=== PATIENT | male | born 1980 | race Caucasian/White ===

== ENCOUNTER 2025-10-17 20:38 | Emergency (ER) | payer OTHER, SELFPAY ==
--- OUTSIDE RECORDS SUMMARY | 2025-10-17 20:41 | XMS_ITS | Clinical Summary ---
Author Organization [facility] 2 Address [address] [facility] [place] [address] Care Team Providers Care Body Builder Apprentice Name Role Phone Dell Watts MD Unavailable Ra Hou NP Unavailable David Kaur MD Primary Care Provider + Allergies Active Allergy Reactions Criticality Noted Date Comments Sulfamethoxazole-Trimethopri m Rash Medium 01/12/2020 Unclassified Drug Rash Medium 02/03/2019 Antibiotic - can't remember the name, gets a little rash after about 3 weeks Medications amoxicillin-cla vulanate (AUGMENTIN) 875-125 mg per tablet Take 1 tablet (875 mg of amoxicillin total) by mouth 2 (two) times a day 11/21/19 24 Active prochlorperazin e (Compazine) 10 mg tabletIndicatio ns:Malignant melanoma of left upper extremity (HCC),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 Referring provider: Dr. Dell aWtts Mr. Nitin Bhardwaj is a 40-year-old with an enlarged right paratracheal lymph node. 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 He underwent excision and sentinel lymph node biopsy followed by 2 cycles of Yervoy completed in December 2016. On 07/19/2020 the patient underwent a CT of the chest/abdomen/pelvis which showed an interval increase in size of a round 13 mm right paratracheal lymph node. This could be reactive or metastatic. Additional findings included a stable 8 mm indeterminate left lower lobe pulmonary nodule. There is no evidence of metastatic disease in the abdomen or pelvis. On 07/30/2020 the patient underwent a endobronchial biopsy of the right paratracheal lymph node. Final pathology revealed metastatic malignant melanoma. He was subsequently initiated on Nivolumab on August 30, 2020. Patient is a current smoker. He is scheduled for an updated CT scan prior to his appointment today. Patient presents today for further surgical evaluation. Review of systems: Musculoskeletal: Positive for back pain and joint aches. Respiratory: Positive for asthma. All other systems reviewed and are negative. 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 Medicine Dermatology [address] [facility] [address] [place] [address] Delfino Brothers MD PhD Multiple benign nevi (Primary Dx); Lentigo; History of malignant melanoma 10/05/2025 12:00 PM THIRD COOK Office Visit [facility] Medicine Oncology [address] [facility] Floor 6 [place] [address] Dell Watts MD Metastatic melanoma (HCC) 10/05/2025 11:00 AM THIRD COOK Clinical Support [facility] - Lab Collection [address] [facility] 6 [place] [address] Metastatic melanoma (HCC) 10/05/2025 10:30 [address] [facility] Medicine Oncology Lab [address] [facility] 6 [place] [address] Metastatic melanoma (HCC) 10/05/2025 8:56 AM THIRD COOK - 10/05/2025 11:59 PM THIRD COOK Hospital Encounter [facility] [address] [place] [phone] Metastatic melanoma (HCC) Discharge Disposition: Discharge to home or self care from Last 3 Months Surgical History Surgery Date Site/Laterality Comments SKIN BIOPSY SHOULDER SURGERY Medical History Medical History Date Comments Arthritis Asthma Melanoma (HCC) melanoma Motion sickness Family History Medical History Relation Name Comments No Known Problems Father Cancer Maternal Grandfather Cancer Maternal Grandmother No Known Problems Mother Relation Name Status Comments Father Maternal Grandfather Maternal Grandmother Mother Social History Tobacco Use Types Packs/Day Years Used Date Smoking Tobacco: Former Cigarettes 0 06/05/2025 - 1996 Smokeless Tobacco: Former Tobacco Cessation:Counseling Given: Not Answered Alcohol Use Standard Drinks/Week Comments Yes 0 (1 standard drink = 0.6 oz pur e alcohol) OCCASIONAL Sex and Gender Information Value Date Recorded Sex Assigned at Not on file Legal Sex Male 11:19 AM THIRD COOK Gender Identity Not on file Sexual Orientation Not on file Last Filed Vital Signs Vital Sign Reading Time Taken Comments Blood Pressure 110/72 10/05/2025 11:40 AM THIRD COOK Pulse 92 10/05/2025 11:40 AM THIRD COOK Temperature 36.5 C (97.7 F) 10/05/2025 11:37 AM THIRD COOK Respiratory Rate 18 10/05/2025 11:37 AM THIRD COOK Oxygen Saturation 98% 10/05/2025 11:40 AM THIRD COOK Inhaled Oxygen Concentration - - Weight 87.1 kg (192 lb) 10/05/2025 11:37 AM THIRD COOK Height 177.5 cm (5' 9.88) 10/05/2025 11:[address] Body Mass Index 27.64 10/05/2025 11:37 AM THIRD COOK Plan of Treatment Health Maintenance Due Date Last Done Comments Colon Cancer Screening-Colonoscopy 1978 Depression Screening 1978 Hepatitis C Screening 1978 DTaP/Tdap/Td Vaccine (1 - Tdap) 1989 Hepatitis B Screening 01/18/1996 Regular Well Visit/Exam 18-64 01/18/1996 Pneumococcal vaccine <65 (1 of 2 - PCV) 1997 Zoster Vaccine (1 of 2) 1997 Influenza Vaccine (#1) 2025 Procedures Procedure Name Priority Date/Time Associated Diagnosis Comments EGFR Routine 10/05/2025 10:54 AM THIRD COOK Metastatic melanoma (HCC) DIFFERENTIAL AUTO Routine 10/05/2025 10: 54 AM THIRD COOK Metastatic melanoma (HCC) CBC WITH AUTO DIFFERENTIAL Routine 10/05/2025 10:54 AM THIRD COOK Metastatic melanoma (HCC) COMPREHENSIVE METABOLIC PANEL Routine 10/05/2025 10:54 AM THIRD COOK Metastatic melanoma (HCC) LACTATE DEHYDROGENASE Routine 10/05/2025 10:54 AM THIRD COOK Metastatic melanoma (HCC) THYROID FUNCTION CASCADE Routine 10/05/2025 10:54 AM THIRD COOK Metastatic melanoma (HCC) CT CHEST ABDOMEN PELVIS W CONTRAST Schedule Routine, Read Routine (OP Routine) 10/05/2025 10:10 AM THIRD COOK Metastatic melanoma (HCC) from Last 3 Months Results * eGFR (10/05/2025 10:54 AM THIRD COOK) eGFR 89 >=60 mL/min/1. 73 m2 Comment: Interpretive Data Reference Interval Normal >/= 90 mL/min/1.73m2 Mildly decreased* 60 - 89 mL/min/1.73m2 Mildly to moderately decreased 45 - 59 mL/min/1.73m2 Moderately to severely decreased 30 - 44 mL/min/1.73m2 Severely decreased 15 - 29 mL/min/1.73m2 Kidney Failure < 15 mL/min/1.73m2 *Relative to young adult level Estimated glomerular filtration rate is determined by the 2020 CKD-EPI equation recommended by the National Kidney Foundation (A Unifying Approach to GFR Estimation: Recommendations of the NKF-ASK Task Force on Reassessing the Inclusion of Race in Diagnosing Kidney Disease, JASN 202). The CKD-EPI equation should not be used for patients with unstable renal function and has not been validated in children and those over 70. Current interpretive data was last reviewed 2021. Blood 10/05/2025 10:5 4 AM THIRD COOK 10/05/2025 11:03 AM THIRD COOK us Ra Hou NP LAB BLOOD ORDERABLES Caroline lloyd Result MARK MURILLO [facility] [place] [address] * Differential, auto (10/05/2025 10:54 AM THIRD COOK) Neutrophil abs 4.59 1.50 - 6.50 K/cumm Comment:Testing performed by : [facility], [address] [place] [phone] Lymphocyte abs 1.76 0.80 - 3.30 K/cumm MARK MURILLO Comment:Testing performed by : [facility], [address] [place] [phone] Monocyte abs 0.28 0.20 - 0.80 K/cumm MARK MURILLO Comment:Testing performed by : [facility], [address] [place] [phone] Eosinophil abs 0.14 0.00 - 0.50 K/cumm MARK MURILLO Comment:Testing performed by : [facility], [address] [place] [phone] Basophil abs 0.05 0.00 - 0.10 K/cumm MARK BJ Comment:Testing performed by : [facility], [address] [place] [phone] Neutrophil pct 67.3 % MARK MURILLO Comment: Interpretive Data Percent cell count reference ranges are not reported, since discordance with absolute values may lead to misinterpretation of CBC data. Current Interpretive Data was last revised on 2018. Testing performed by: [facility], [address] [place] [phone] Lymphocyte pct 25.8 % [facility] Comment: Interpretive Data Percent cell count reference ranges are not reported, since discordance with absolute values may lead to misinterpretation of CBC data. Current Interpretive Data was last revised on 2018. Testing performed by: [facility], [address] [place] [phone] Monocyte pct 4.1 % [facility] Comment: Interpretive Data Percent cell count reference ranges are not reported, since discordance with absolute values may lead to misinterpretation of CBC data. Current Interpretive Data was last revised on 2018. Testing performed by: [facility], [address] [place] [phone] Eosinophil pct 2.1 % [facility] Comment: Interpretive Data Percent cell count reference ranges are not reported, since discordance with absolute values may lead to misinterpretation of CBC data. Current Interpretive Data was last revised on 2018. Testing performed by: [facility], [address] [place] [phone] Basophil pct 0.7 % [facility] Comment: Interpretive Data Percent cell count reference ranges are not reported, since discordance with absolute values may lead to misinterpretation of CBC data. Current Interpretive Data was last revised on 2018. Testing performed by: [facility], [address] [place] [phone] Blood 10/05/2025 10:5 4 AM THIRD COOK 10/05/2025 11:02 AM THIRD COOK Ra Hou NP LAB BLOOD ORDERABLES Caroline lloyd Result MARK MURILLO [facility] [place] [address] * Thyroid Function [place] (10/05/2025 10:54 AM THIRD COOK) TSH 1.54 0.30 - 4.20 mcIUnit/mL Blood 10/05/2025 10:5 4 AM THIRD COOK 10/05/2025 11:03 AM THIRD COOK Ra Hou PARTRIDGE FARMER LAB BLOOD ORDERABLES Caroline lloyd Result [facility] [place] [address] * CBC with auto differential (10/05/2025 10:54 AM THIRD COOK) Pathologist [facility] WBC 6.82 3.80 - 9.90 K/cumm Comment:Testing performed by : [facility], [address] [place] [address] Hgb 15.3 13.0 - 17.5 g/dL [facility]I MURILLO Comment:Testing performed by : [facility], [address] [place] [address] Hct 44.9 38.9 - 50.3 % [facility] BJ Comment:Testing performed by : [facility], [address] [place] [address] Plt 196 150 - 400 K/cumm [facility] BJ Comment:Testing performed by : [facility], [address] [place] [address] MPV 7.5 6.8 - 10.4 fL [facility]I BJ Comment:Testing performed by : [facility], [address] [place] [address] RBC 5.09 4.30 - 5.80 M/cumm [facility] BJ Comment:Testing performed by : [facility], [address] [place] [address] MCV 88.2 81.3 - 96.4 fL [facility] BJ Comment:Testing performed by : [facility], [address] [place] [address] MCH 30.1 27.1 - 33.3 pg [facility] BJ Comment:Testing performed by : [facility], [address] [place] [phone] MCHC 34.2 32.3 - 35.7 g/dL MARK [facility] Comment:Testing performed by : [facility], [address] [place], [place] [phone] RDW CV 13.3 11.1 - 14.9 % MARK [facility] Comment:Testing performed by : [facility], [address] [place] [phone] NRBC abs 0.00 0.00 - 0.01 K/cumm MARK [facility] Comment:Testing performed by : [facility], [address] [place] [phone] Blood 10/05/2025 10:5 4 AM THIRD COOK 10/05/2025 11:02 AM THIRD COOK Ra Hou [employer]TRIDGE FARMER LAB BLOOD ORDERABLES Caroline l Result Performing Organization Address City/[facility]/ZIP Co de Phone Number [facility] Department [place] [address] * Lactate dehydrogenase (LD) (10/05/2025 10:54 AM THIRD COOK) [facility] Lactate dehydrogenase (LDH) 211 100 - 250 Units/L Blood 10/05/2025 10:5 4 AM THIRD COOK 10/05/2025 11:03 AM THIRD COOK Ra Hou PARTRID[employer] F[employer]ER LAB BLOOD ORDERABLES Caroline l Result Performing Organization Address City/[facility]/ZIP Co de Phone Number [facility] [place] [address] * Comprehensive metabolic panel (10/05/2025 10:54 AM THIRD COOK) Pathologist [facility] Sodium 141 135 - 145 mmol/L Potassium, pl 4.2 3.3 - 4.9 mmol/L [facility] Chloride 103 97 - 110 mmol/L [facility] CO2 28 22 - 32 mmol/L [facility] Anion gap 10 2 - 15 mmol/L [facility] BUN 12 6 - 25 mg/dL [facility] Creatinine 1.04 0.80 - 1.30 mg/dL [facility] Glucose 133 70 - 199 mg/dL [facility] Comment: Interpretive Data Fasting glucose >/= 126 mg/dl is diagnostic for diabetes. Fasting is defined as no caloric intake for at least 8 hours. Fasting glucose between 100 mg/dl to 125 mg/dl is diagnostic of prediabetes. In a patient with classic symptoms of hyperglycemia or hyperglycemic crisis, a random glucose >/= 200 mg/dl is diagnostic for diabetes. In the absence of unequivocal hyperglycemia, results should be confirmed by repeat testing. The classification and Diagnosis of Diabetes Diabetes Care 202; 46: S19-S40. Current interpretive data was last revised 2022. Calcium 9.3 8.5 - 10.3 mg/dL [facility] Bilirubin, total 0.4 0.1 - 1.2 mg/dL [facility] Protein, pl 7.1 6.5 - 8.5 g/dL [facility] Albumin 4.4 3.5 - 5.0 g/dL [facility] Alk phos 74 40 - 130 Units/L [facility] ALT 38 7 - 55 Units/L [facility] AST 23 10 - 50 Units/L [facility] Blood 10/05/2025 10:5 4 AM THIRD COOK 10/05/2025 11:03 AM THIRD COOK Ra Hou NP LAB BLOOD ORDERABLES Caroline l Result [facility] [place] [address] * CT Chest Abdomen Pelvis W Contrast (10/05/2025 10:10 AM THIRD COOK) Anatomical Region Laterality Modality Body N/A Computed Tomogra phy 10/05/2025 10:2 2 AM THIRD COOK Impressions 10/05/2025 10:22 AM THIRD COOK No evidence of metastatic disease within the chest, abdomen, or pelvis. Electronically signed by: Aime Pastor MD PHD Narrative 10/05/2025 10:22 AM THIRD COOK EXAMINATION: CT CHEST ABDOMEN PELVIS W CONTRAST HISTORY: 45-year-old with metastatic left upper extremity melanoma. TECHNIQUE: Transaxial computed tomographic images of the chest, abdomen and pelvis were obtained with intravenous contrast according to the standard protocol after the administration of 69 mL Opti-Ray 350 intravenous contrast. COMPARISON: CT dated 04/06/2025. FINDINGS: CHEST: No supraclavicular, axillary, or mediastinal lymphadenopathy. The heart size is normal, without pericardial effusion. Coronary artery calcifications. The great vessels are normal in course and caliber. Central airways are clear. No pleural effusion, pulmonary edema, pulmonary consolidation, or pneumothorax. There is old granulomatous disease. A 0.7 cm pulmonary nodule along the right minor fissure likely represents a perifissural lymph node, unchanged. The esophagus is nondistended. ABDOMEN: Unchanged hypoenhancing subcentimeter focus within hepatic segment 2 (TP 211.0), likely representing a flash filling hemangioma. No new focal hepatic lesion is identified. The gallbladder and pancreas is normal. No intra or extrahepatic biliary ductal dilatation. The spleen is unremarkable, with old granulomatous disease. The adrenal glands are normal. The kidneys enhance symmetrically, without hydronephrosis or nephrolithiasis. The urinary bladder is normal. The prostate is present, with dystrophic calcifications. The stomach is nondistended. The duodenal sweep is normal. No evidence of bowel obstruction. The appendix is normal. Scattered colonic diverticula, without evidence of acute diverticulitis. No mesenteric, retroperitoneal, or pelvic lymphadenopathy. Abdominal aorta is normal in course and caliber. The celiac trunk, superior mesenteric artery, and inferior mesenteric artery are patent. The main portal vein, splenic vein, and superior mesenteric vein are patent. Tiny fat-containing periumbilical hernia. No pneumoperitoneum or ascites. No suspicious osseous lesion. Unchanged right femoral synovial herniation pit. Procedure Note Aime Pastor MD PhD - 10/05/2025 EXAMINATION: CT CHEST ABDOMEN PELVIS W CONTRAST HISTORY: 45-year-old with metastatic left upper extremity melanoma. TECHNIQUE: Transaxial computed tomographic images of the chest, abdomen and pelvis were obtained with intravenous contrast according to the standard protocol after the administration of 69 mL Opti-Ray 350 intravenous contrast. COMPARISON: CT dated 04/06/2025. FINDINGS: CHEST: No supraclavicular, axillary, or mediastinal lymphadenopathy. The heart size is normal, without pericardial effusion. Coronary artery calcifications. The great vessels are normal in course and caliber. Central airways are clear. No pleural effusion, pulmonary edema, pulmonary consolidation, or pneumothorax. There is old granulomatous disease. A 0.7 cm pulmonary nodule along the right minor fissure likely represents a perifissural lymph node, unchanged. The esophagus is nondistended. ABDOMEN: Unchanged hypoenhancing subcentimeter focus within hepatic segment 2 (TP 211.0), likely representing a flash filling hemangioma. No new focal hepatic lesion is identified. The gallbladder and pancreas is normal. No intra or extrahepatic biliary ductal dilatation. The spleen is unremarkable, with old granulomatous disease. The adrenal glands are normal. The kidneys enhance symmetrically, without hydronephrosis or nephrolithiasis. The urinary bladder is normal. The prostate is present, with dystrophic calcifications. The stomach is nondistended. The duodenal sweep is normal. No evidence of bowel obstruction. The appendix is normal. Scattered colonic diverticula, without evidence of acute diverticulitis. No mesenteric, retroperitoneal, or pelvic lymphadenopathy. Abdominal aorta is normal in course and caliber. The celiac trunk, superior mesenteric artery, and inferior mesenteric artery are patent. The main portal vein, splenic vein, and superior mesenteric vein are patent. Tiny fat-containing periumbilical hernia. No pneumoperitoneum or ascites. No suspicious osseous lesion. Unchanged right femoral synovial herniation pit. IMPRESSION: No evidence of metastatic disease within the chest, abdomen, or pelvis. Electronically signed by: Aime Pastor MD PHD Ra Hou NP IMG CT PROCEDURES Final R esult from Last 3 Months Insurance [facility] [facility] [place] PPO [facility] ACCESS Member Subscriber Plan / Payer ( fective 2018-Present) Name:To Bhardwaj Relation to Subscriber:Self Name:TO BHARDWAJ Payer ID:[id number] ([facility]) Type:Linux Voice Address: [facility] [id number] [address] ACCESS [facility] OPTIONS PPO [facility] OPTIONS PPO Care Teams Body Builder Apprentice Relationship Specialty Start Date End Date David Kaur MD [address] [facility] [address] [place] [address] PCP - General Family Practice 11/14/21 Dell Watts MD [address] [place] [address] Medical Oncologist/Blocker [employer] Medical Oncology 09/27/20 Ra Hou NP [address] [place] [address] Nurse Practitioner Medical Oncology 12/20/20
--- OUTSIDE RECORDS SUMMARY | 2025-10-17 20:41 | XMS_ITS ---
Author Organization [facility] 2 Address [address] [facility] [place] [address] Care Team Providers Care Integration Manager Name Role Phone Dell Watts MD Unavailable [phone] Ra Hou NP Unavailable [phone] David Kaur MD Primary Care Provider + Active Problems Patient Care Coordination No te Formatting of this note migh t be different from the original. Referring provider: Dr. Dell Watts Mr. 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 Past Treatment and Therapy Plans Line Care Plan Name Start Date Discontinue Date Treatment Medications Discontinue Reason Plan Provider IV MAINTENANCE THERAPY PLAN 09/28/2020 01/08/2024 No medications scheduled. Automatic discontinuation of dormant plans Dell Watts MD Oncology Chemotherapy Treatment Plan Name Start Date Discontinue Date Treatment Medications Discontinue Reason Plan Provider Cycles Nivolumab 480 mg 28 Day Cycles 08/30/2020 03/14/2021 nivolumab (OPDIVO)nivolu mab (OPDIVO) in 50 mL IVPB Provider Discretion Dell Watts MD 5 of 12 cycles started Oncology Treatment (2) Plan Name Start Date Discontinue Date Treatment Medications Discontinue Reason Plan Provider Cycles Olaparib TABlets PO BID 28 Day Cycles 09/28/2020 03/14/2021 No medications scheduled. Provider Discretion Dell Watts MD 2 of 12 cycles started Lifetime Dose Tracking * Chemical Lifetime Dose Automatic Entry Manual Entr y DLP 17,261 mGycm 17,261 mGycm 0 mGycm
--- OUTSIDE RECORDS SUMMARY | 2025-10-17 20:41 | XMS_ITS | Encounter Summary ---
Author Organization [facility] Address [address] [place] [address] Phone Care Team Providers Care Pipe Fitter Gas Pipe Name Role Phone Олег Rosales MD Primary Care Provider [phone] Dell Watts MD Unavailable [phone] Ra Hou NP Unavailable [phone] David Kaur MD Primary Care Provider + Encounter Details Date Type Department Care Team (Latest Contact Info) Description 11/22/2020 Orders Only [facility] Scanning, Provider Social History Tobacco Use Types Packs/Day Years Used Date Smoking Tobacco: Every Day Cigarettes Smokeless Tobacco: Former Alcohol Use Standard Drinks/Week Comments Yes 0 (1 standard drink = 0.6 oz pur e alcohol) OCCASIONAL Sex and Gender Information Value Date Recorded Sex Assigned at Not on file Legal Sex Male 11:19 AM SUPERVISOR PURIFICATION Gender Identity Not on file Sexual Orientation Not on file documented as of this encounter Plan of Treatment Not on file documented as of this encounter Procedures Procedure Name Priority Date/Time Associated Diagnosis Comments SCAN - PATHOLOGY 11/22/2020 documented in this encounter Results * SCAN - PATHOLOGY (11/22/2020) us Provider Scanning Final Result documented in this encounter Visit Diagnoses Not on filedocumented in this encounter Care Teams Pipe Fitter Gas Pipe Relationship Specialty Start Date End Date лОег Rosales MD [address] [place] [address] PCP - General 10/26/17 11/13/21 David Kaur MD [address] [facility] [address] [place] [address] PCP - General Family Practice 11/14/21 Dell Watts MD [address] [facility] [address] [place] [address] Medical Oncologist/Power Crane Operator Medical Oncology 09/27/20 Ra Hou, [employer]OT[employer] PRODUCER [address] [facility] [address] [place] [address] Nurse Practitioner Medical Oncology 12/20/20 documented as of this encounter
--- OUTSIDE RECORDS SUMMARY | 2025-10-17 20:41 | XMS_ITS | Clinical Summary ---
Author Organization [facility] Address [address] [address] Care Team Providers Care Him Director Name Role Phone None, Physician Unavailable Unavailable Source Comments [facility],non-owned Affiliates and Associated Physician Practices is amultiple site organization consisting of ambulatory clinics and hospital sitesin [place], [place], [place] and [place]. This disclosure is being madepursuant to the Care Everywhere program and may not contain all information available regarding this patient. Last updated 18.[facility] Allergies Active Allergy Reactions Criticality Noted Date Comments Sulfamethoxazole W-Trimethoprim Unknown,Rash Medium Medications * Be aware that medications may not be up to date on this document. Alwaysverify current medications with the patient. 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 Gender Identity Not on file Sexual Orientation Not on file Last Filed Vital Signs Vital Sign Reading Time Taken Comments Blood Pressure 130/84 05/25/2025 1:21 PM CDT Pulse 77 05/25/2025 1:21 PM CDT Temperature - - Respiratory Rate - - Oxygen Saturation - - Inhaled Oxygen Concentration - - Weight 84.4 kg (186 lb) 05/25/2025 1:21 PM CDT Height 182.9 cm (6') 05/25/2025 1:21 PM CDT Body Mass Index 25.23 05/25/2025 1:21 PM CDT Plan of Treatment Health Maintenance Due Date Last Done Comments AMBAR (AGES 45-75) - COL ON CA SCREENING 1978 COLON MONITORING 1978 COLONOSCOPY - COLON CA SCREENING 1978 CT COLONOGRAPHY - COLON CA SCREENING 1978 Colorectal Cancer Screening 1978 FIT - COLON CA SCREENING 1978 FLEX SIG - COLON CA SCREENING 1978 LIPID TESTING 1978 HIV SCREENING 1993 HEPATITIS C SCREENING 01/13/1996 DTAP/TDAP/TD VACCINES (1 - Tdap) 1997 HEPATITIS B VACCINE (1 of 3 - 19+ 3-dose series) 1997 PNEUMOCOCCAL VACCINE (1 of 2 - PCV) 1997 DEPRESSION SCREENING 10/29/2024 SCREENING FOR DIABETES 05/04/2025 COVID-19 VACCINE (1 - 2024-2 6 season) 2025 INFLUENZA VACCINE (#1) 2025 ZOSTER VACCINE (1 of 2) 01/18/2028 HIB VACCINE Aged Out No longer eligi ble based on patient's age to complete this topic HPV VACCINE Aged Out No longer eligi ble based on patient's age to complete this topic MENINGOCOCCAL (Group B) VACC INE SHARED DECISION-MAKING Aged Out No longer eligibl e based on patient's age to complete this topic MENINGOCOCCAL GROUPS A/C/Y/W VACCINE Aged Out No longer eligible b ased on patient's age to complete this topic Insurance Care Teams Him Director Relationship Specialty Start Date End Date None, Physician 05/04/25 David Kaur MD Primary Care Provider 11/14/21
[2025-10-17 20:44] VITALS: BP 130/79; PULSE 102; RESP 20; TEMP 37.4; O2SAT 98
[2025-10-17 21:36] VITALS: BP 135/73; PULSE 92; RESP 17; TEMP 37.2; O2SAT 98
--- NOTE | 2025-10-17 22:02 | ED_ITS ---
HPI - Ear Problem General Chief complaint: Ear Stated complaint: I'm sick, ear popping Time Seen by Provider: 10/17/25 22:02 History of Present Illness HPI Narrative: 45-year-old male presents emergency department with left ear pain for just under a day. He endorses congestion sore throat sick contacts at home with similar symptoms. He denies any tinnitus no change in hearing. Denies any trauma. No ocular complaints no shortness of breath no chest pain. Patient has been prescr ibed antibiotics for an ear infection from an urgent care. Related Data Allergies Allergy/AdvReac Type Severity Reaction Status Date / Time acetaminophen Allergy Intermediate Headache Verified 10/17/25 20:47 sulfamethoxazole Allergy Intermediate Rash Verified 10/17/25 20:47 trimethoprim Allergy Intermediate Rash Verified 10/17/25 20:47 Review of Systems Review of Systems: All systems reviewed & are unremarkable except as noted in HPI and below Exam Narrative: EXAMINATION OF ORGAN SYSTEMS/BODY AREAS: Constitutional: Vital signs per nursing GENERAL:No acute distress, non-toxic appearing. HEAD: Normal with no signs of head trauma. EYES: EOMI, conjunctiva normal ENT: Right TM is clear, left TM is erythematous but there is no effusion. Auditory canals clear. No associated cervical lymphadenopathy. LUNGS: Nonlabored breathing. HEART: Regular rate and rhythm ABD: Soft, nontender to palpation EXT: Normal range of motion SKIN: No rashes or lesions. NEURO: Alert. No gross focal sensory or strength deficits. PSYCH: Normal affect Course Vital Signs Vital signs: Vital Signs Temperature 37.4 C 10/17/25 20:44 Pulse Rate 102 H 10/17/25 20:44 Respiratory Rate 20 10/17/25 20:44 Blood Pressure 130/79 10/17/25 20:44 Pulse Oximetry 98 10/17/25 20:44 Oxygen Delivery Room Air 10/17/25 20:44 Temperature 37.2 C 10/17/25 21:36 Pulse Rate 92 10/17/25 21:36 Respiratory Rate 17 10/17/25 21:36 Blood Pressure 135/73 10/17/25 21:36 Pulse Oximetry 98 10/17/25 21:36 Oxygen Delivery Room Air 10/17/25 20:44 MDM Differential Diagnosis Differential Diagnosis: 45-year-old male presents with 1 day of left ear pain. Had a darryn discussion with him that I strongly suspect a viral etiology in addition to congestion related to his ear pain given a sick contact in presentation and I recommended against antibiotics. I did recommend prescription of the congestion and NSAIDs which I will send him home with both. Otherwise he is appropriate for outpatient follow-up with established primary care doctor on Sunday return sooner for any new or concerning symptoms Discharge Plan Discharge Clinical Impression: Otitis media Patient Disposition: Home Condition: Stable Instructions: Antibiotic Form, Ear Infection (AC) Patient Language: Kazakh Prescriptions: New hqfxtopnd-DR-JR-acetaminophen [id number] mg tablet 0.5 tablet PO Q4H PRN (Reason: cold symptoms) Qty: 14 0RF ketorolac 10 mg tablet 10 mg PO Q8H Qty: 20 5RF Rx Instructions: maximum total duration of 5 days from all oral, intranasal, or parenteral formulations Follow-up/Referrals: UNKNOWN,DOCTOR [Non-Staff] Time of Disposition: 22:42
[2025-10-17] MEDS: PSEUDOEPHEDRINE HCL 30 MG TABLET PO (23:01)
[2025-10-17] MEDS: KETOROLAC 30 MG/ML VIAL (*BKC) IM (23:02)
[2025-10-17 23:12] VITALS: BP 128/88; PULSE 95; RESP 20; TEMP 36.7; O2SAT 100
== END 2025-10-17 23:14 | disposition home or self-care (01) ==
PROVIDERS: Emergency Provider Emergency Medicine
DX: H66.92 Otitis media, unspecified, left ear (principal)
CPT/HCPCS: 96372; 99283; A9270; J1885